=== PATIENT | female | born 1985 | race Two or more races ===

== ENCOUNTER 2017-07-26 07:33 | Day surgery (SDC) | payer MEDICAID ==
[~2017-07-26 07:33] MED LIST: CEFAZOLIN 1 GM INJ; METOCLOPRAMIDE 10 MG INJ; ROCURONIUM 50 MG INJ
[2017-07-26] MEDS ORDERED: MIDAZOLAM 1 MG/ML 2 ML INJ (08:27)
[2017-07-26] MEDS ORDERED: FENTAnyl 50 MCG/ML VIAL (08:27)
[2017-07-26] MEDS ORDERED: PROPOFOL 20 ML (08:28)
[2017-07-26] MEDS ORDERED: SUCCINYLCHOLINE CHLORIDE 100 MG/5 ML SYG IV (08:28)
[2017-07-26] MEDS ORDERED: LIDOCAINE 100 MG SYRINGE (08:28)
[2017-07-26] MEDS ORDERED: SUGAMMADEX SODIUM 200 MG/2 ML VIAL IV (08:29)
[2017-07-26 08:50] LABS: ADD MAN DIFF? NO
[2017-07-26 08:52] LABS: WHITE BLOOD COUNT 4.8 10^3/ul (4.8-10.8)
[2017-07-26 08:52] LABS: BASOPHILS % 0.6 % (0.0-2.0); EOSINOPHILS # 0.1 10^3/ul (0.0-0.5); EOSINOPHILS % 1.7 % (0.0-7.0); HEMATOCRIT 37.7 % (37.0-47.0); HEMOGLOBIN 12.7 g/dl (12.0-16.0); LYMPHOCYTES # 1.4 10^3/ul (0.8-2.9); LYMPHOCYTES % 29.1 % (15.0-51.0); MEAN CORPUSCULAR HEMOGLOBIN 30.6 pg (29.0-33.0); MEAN CORPUSCULAR HGB CONC 33.7 g/dl (32.0-37.0); MEAN CORPUSCULAR VOLUME 90.8 fl (82.0-101.0); MEAN PLATELET VOLUME 10.9 fl (7.4-10.4); MONOCYTE # 0.8 10^3/ul (0.3-0.9); MONOCYTES % 17.5 % (0.0-11.0); NEUTROPHIL # 2.4 10^3/ul (1.6-7.5); NEUTROPHILS % 50.7 % (39.0-77.0); PLATELET COUNT 219 10^3/UL (140-415); RED BLOOD COUNT 4.15 10^6/ul (4.20-5.40); RED CELL DISTRIBUTION WIDTH 12.1 % (11.5-14.5)
[2017-07-26] MEDS ORDERED: ONDANSETRON 4 MG INJ ×2 (09:29→10:18)
[2017-07-26] MEDS ORDERED: HYDROmorphONE (0.2 MG/ML) 10ML SYG IV ×2 (10:18→10:30)
[2017-07-26] MEDS: ONDANSETRON 4 MG INJ IV (10:30)
[2017-07-26] MEDS ORDERED: KETOROLAC 30 MG INJ IV (10:30)
[2017-07-26] MEDS ORDERED: FENTAnyl 50 MCG/ML VIAL IV ×2 (10:30)
[2017-07-26] MEDS ORDERED: METOCLOPRAMIDE 10 MG INJ IV (10:30)
[2017-07-26] MEDS: HYDROmorphONE (0.2 MG/ML) 10ML SYG IV ×2 (10:30→10:45)
== END 2017-07-26 12:16 | disposition home or self-care (01) ==
LOC: SDS 07:33
DX: Z30.2 Encounter for sterilization (principal)
CPT/HCPCS: 58670; 85025; 86850; 86900; 86901